=== PATIENT | male | born 1985 | race Caucasian/White ===

== ENCOUNTER 2016-11-23 23:37 | Emergency (ER) | payer SELFPAY ==
[2010-10-14 10:08] VITALS: BMI 23.0
== END 2016-11-24 02:05 | disposition left against medical advice (07) ==
LOC: D.ER 23:37
DX: M79.641 Pain in right hand (principal)

== ENCOUNTER 2020-01-10 00:03 | Observation (INO) | payer MEDICAID ==
[~2020-01-10] VITALS: Ht 180.3 cm; Wt 86.9 kg
[2020-01-10] VITALS (8 sets, daily range): BP systolic 86–135; BP diastolic 51–88; Ht 180.3 cm; Wt 86.9 kg
--- NOTE | 2020-01-10 00:23 | NUR ---
URINE SENT TO LAB
[2020-01-10 00:28] LABS: BASOPHILS 0.6 % (0-2); EOSINOPHILS 6.3 % (0-7); HEMATOCRIT 46.2 % (42.0-54.0); HEMOGLOBIN 15.6 g/dL (13.5-17.5); IMMATURE GRANULOCYTES 0.4 % (0-5); LYMPHOCYTES 41.7 % (15-50); MCH 31.8 pg (26.0-34.0); MCHC 33.8 g/dL (31.0-37.0); MCV 94.3 fL (80.0-100.0); MEAN PLATELET VOLUME 10.3 fL (7.4-10.4); MONOCYTES 6.6 % (2-11); NEUTROPHILS 44.4 % (40-80); PLATELET COUNT 312 10x3/uL (130-400); WBC 9.6 10x3/uL (4.8-10.8)
[2020-01-10 00:33] LABS: BILIRUBIN NEGATIVE (NEGATIVE); GLUCOSE NEGATIVE (NEGATIVE); KETONE NEGATIVE (NEGATIVE); NITRITE NEGATIVE (NEGATIVE); SPECIFIC GRAVITY 1.015 (1.005-1.020); UROBILINOGEN NORMAL (NORMAL)
[2020-01-10 00:41] LABS: CALC OSMOLALITY 283 mosm/kg (275-300); CALCIUM 8.5 mg/dL (8.5-10.1); CHLORIDE - SERUM 106 mmol/L (98-107); GLUCOSE 102 mg/dL (74-106); POTASSIUM - SERUM 3.9 mmol/L (3.5-5.1); SODIUM 142 mmol/L (136-145); UREA NITROGEN 14 mg/dL (7-18); eGFR NON AFRICAN AMERICAN 90 mL/min (90-120)
[2020-01-10 00:44] LABS: ALBUMIN 4.4 g/dL (3.4-5.0); ALKALINE PHOSPHATASE 63 U/L (30-120); ALT (SGPT) 48 U/L (10-68); BILIRUBIN - TOTAL 0.17 mg/dL (0.2-1.3); MAGNESIUM - SERUM 2.3 mg/dL (1.8-2.4); PROTEIN - SERUM 7.8 g/dL (6.4-8.2); UDS - AMPHET NEGATIVE QUAL (NEGATIVE); UDS - BARB NEGATIVE QUAL (NEGATIVE); UDS - BENZO NEGATIVE QUAL (NEGATIVE); UDS - COCAINE NEGATIVE QUAL (NEGATIVE); UDS - OPIATE POSITIVE QUAL (NEGATIVE); UDS - PCP NEGATIVE QUAL (NEGATIVE); UDS - THC NEGATIVE QUAL (NEGATIVE)
--- NOTE | 2020-01-10 01:30 | NUR ---
STEAMING CABINET TENDER AT BEDSIDE FOR ASSESSMENT. SITTER AT BEDSIDE.
--- NOTE | 2020-01-10 01:50 | NUR ---
PT TOOK HIS OWN IV OUT AT THIS TIME. PT STATES THAT HE WANTED IT PUT IN HIS HAND INSTEAD. INFORMED.
--- NOTE | 2020-01-10 01:53 | NUR ---
DR STEINER NOTIFIED OF PT's BEHAVIOR AND ASSESSMENT RESULTS. PT IS A LOW RISK PER DR STEINER. DR STEINER STATED TO GIVE RESOURCES TO PT AT TIME OF DISCHARGE. NO FURTHER ORDERS AT THIS TIME. RESOURCES REVIEWED WITH PT AND HE VERBALIZED UNDERSTANDING.
[2020-01-10] MEDS ORDERED: LOPRESSOR25 MG PO (02:20)
[2020-01-10] MEDS ORDERED: FENOGLIDE40 MG PO (02:21)
[2020-01-10] MEDS ORDERED: FENOFIBRATE160 MG PO (02:21)
[2020-01-10] MEDS ORDERED: CYMBALTA20 MG PO (02:21)
[2020-01-10] MEDS ORDERED: LISINOPRIL20 MG PO (02:23)
[2020-01-10] MEDS ORDERED: HYDROCODON-ACE1 EA10 PO (02:24)
[2020-01-10] MEDS ORDERED: SOMA350 MG PO (02:25)
[2020-01-10] MEDS ORDERED: NEURONTIN800 MG PO (02:26)
--- NOTE | 2020-01-10 02:45 | NUR ---
PT ARRIVED IN THE UNIT. PT HOOKED TO ICU MONITORS. PT DENIES THAT HE TRIED TO KILL HIM SELF. "I JUST HAD A REALLY BAD DAY. I TOOK MY HEART PILLS SO I COULD GO TO SLEEP AND SOMEONE CALLED THE AMBULANCE ON ME. APPARENTLY THE MEDICS THINK THEY KNOW BETTER THAN ME AND SAID THAT TAKING TO MANY OF MY HEART PILLS IS A BAD IDEA". I ASKED THE PT IF HE IS A DRINKER. "I QUIT DRINKING OVER A YEAR AGO. ME AND MY GOT INTO AN ARGUMENT AND I JUST HAD A BAD DAY." PT COOPERATIVE AND CALM AT THIS TIME. VSS. ON ASSESSMENT, PT HAD 2 CIGARETTETS AND A DEFENSE ANALYST TUCKED IN HIS SOCKS. THEY WHERE CONFISCATED. PT RESTING WITH HIS EYES CLOSED. VSS AT THIS TIME. 1:1 SITTER AT THE PTS BEDSIDE. WILL CONT POC.
[2020-01-10 03:43] LABS: BASOPHILS 0.8 % (0-2); EOSINOPHILS 5.9 % (0-7); HEMATOCRIT 44.2 % (42.0-54.0); HEMOGLOBIN 14.6 g/dL (13.5-17.5); IMMATURE GRANULOCYTES 0.4 % (0-5); LYMPHOCYTES 46.6 % (15-50); MCH 31.5 pg (26.0-34.0); MCV 95.3 fL (80.0-100.0); MEAN PLATELET VOLUME 10.2 fL (7.4-10.4); MONOCYTES 4.4 % (2-11); NEUTROPHILS 41.9 % (40-80); PLATELET COUNT 297 10x3/uL (130-400); RBC 4.64 10x6/uL (4.20-6.10); RDW 13.1 % (11.5-14.5)
[2020-01-10 03:51] LABS: CALC OSMOLALITY 285 mosm/kg (275-300); CALCIUM 8.1 mg/dL (8.5-10.1); CARBON DIOXIDE 25.4 mmol/L (21.0-32.0); CHLORIDE - SERUM 107 mmol/L (98-107); CREATININE - SERUM 0.9 mg/dL (0.6-1.3); GLUCOSE 90 mg/dL (74-106); PHOSPHOROUS 3.8 mg/dL (2.5-4.9); POTASSIUM - SERUM 3.8 mmol/L (3.5-5.1); SODIUM 143 mmol/L (136-145); UREA NITROGEN 15 mg/dL (7-18); eGFR NON AFRICAN AMERICAN > 90 mL/min (90-120)
--- NOTE | 2020-01-10 07:15 | NUR ---
REPORT RECEIVED. ASSESSMENT COMLPETE PER FLOW SHEET.VSS PT RESTING COMFORTABLY DENIES NEEDS WILL CONTINUE TO MONITOR
--- NOTE | 2020-01-10 09:20 | NUR ---
REFUSED BREAKFAST. DENIES NEEDS.
--- NOTE | 2020-01-10 11:15 | NUR ---
PT REFUSED LUNCH
--- NOTE | 2020-01-10 15:10 | NUR ---
DR STEINER AT BEDSIDE GIVEN UPDATE. STATED PT COULD BE DISCHARGED AT THIS TIME IF PCP WAS OKAY. DR ADAMS CALLED GIVEN UDPATE. DISCHARGE ORDERS RECEIVED.
--- NOTE | 2020-01-10 15:39 | NUR ---
PT LEFT VIA WHEELCHAIR. NEEDS MET.
--- NOTE | 2020-01-11 14:44 | CN ---
PATIENT NAME:DAVID JEAN MEDICAL RECORD: [id number] : 83 LOCATION:[id number] ADMIT DATE: 01/10/20 ACCOUNT: [id number] CONSULTING PHYSICIAN: CHRISTA STEINER MD REFERRING PHYSICIAN: JAVED ADAMS DO DATE OF CONSULTATION: 01/10/2020 PSYCHIATRIC CONSULTATION IDENTIFYING DATA: The patient is 34 years old and he is admitted to the hospital on a voluntary basis. CHIEF COMPLAINT: Overdose. HISTORY OF PRESENT ILLNESS: The patient was brought to the hospital impaired. He was drunk. He regularly takes hydrocodone on a scheduled basis and apparently he took 5 metoprolol tablets ostensibly to help him sleep. He denied that he want to hurt himself and he still denies this. He says he was upset with his that they are probably going to get a divorce. He also says that he has a number of guns and that if he wanted to kill himself, he knows how to do it. He says he does not want to kill himself. He denies depressive symptoms and denies that he would seek to harm himself or others. MENTAL STATUS EXAMINATION: The patient is awake, alert and oriented to person, place, time and situation. His mood is euthymic. His affect appropriate. Thought processes are goal directed. Memory, concentration, and abstraction abilities are intact. He denies intent to harm himself or others as well as psychotic symptoms. ASSESSMENT: 1. Adjustment disorder with mixed emotional features. 2. Alcohol abuse. PLAN: The patient is not wanting inpatient psychiatric or substance abuse care. He does not meet criteria for an involuntary treatment. He will be discharged to home and follow up will be with the counselor with whom he has an established relationship. I have recommended that he not take the hydrocodone that he stop drinking and that he attend Alcoholics Anonymous. He says he will consider not taking the hydrocodone. He says he will not drink and that he will not go to the Alcoholics Anonymous because he sees a counselor on a regular basis. His appointment with her is tomorrow. He can be discharged from a psychiatric standpoint. TRANSINT:[id number] Voice Confirmation ID: [id number] DOCUMENT ID: [id number] CHRISTA STEINER MD at 1444 CC: [id number] DICTATION DATE: 01/10/20 154 ADOBE ARCHITECT: 01/10/20 1548 DIS IN 01/10/20 [facility] [address] [facility] [place] [address]
== END 2020-01-10 15:40 | disposition home or self-care (01) ==
LOC: D.ER 00:03 → OBSVTIME 01:05 → D.ICU 01:05
PROVIDERS: Family Medicine; ADMIT Family Medicine; ATTEND Family Medicine
DX: F10.129 Alcohol abuse with intoxication, unspecified (principal); Y90.8 Blood alcohol level of 240 mg/100 ml or more; R45.851 Suicidal ideations; T44.7X2A Poisoning by beta-adrenoreceptor antagonists, intentional self-harm, initial encounter; F17.210 Nicotine dependence, cigarettes, uncomplicated; I10 Essential (primary) hypertension; G89.29 Other chronic pain; M54.9 Dorsalgia, unspecified